=== PATIENT | male | born 1970 | race African-American/Black ===

== ENCOUNTER 2020-07-26 15:29 | Emergency (ER) | payer OTHER ==
[2020-07-26 15:57] VITALS: TEMP 98.4; BMI 36.5
[2020-07-26 17:19] LABS: BASO % 0.7 % (0-2.0); EOS % 2.8 % (0-4.5); HEMATOCRIT 39.2 % (35.4-49); HEMOGLOBIN 13.2 GM/dL (11.7-16.9); LYMPH % 31.1 % (8-40); MCH 30.5 pg (25.7-33.7); MCHC 33.6 g/dl (32.0-35.9); MEAN CELL VOLUME 90.8 fl (80-96); MEAN PLT VOLUME 7.6 fl (7.5-11.1); MONO % 7.8 % (3.8-10.2); NEUT % 57.6 % (42.8-82.8); PLATELET COUNT 321 K/MM3 (134-434); RBC 4.32 M/mm3 (4.00-5.60); RDW 14.7 % (11.9-15.9)
[2020-07-26 17:43] LABS: CHLORIDE 106 mmol/L (98-107); SODIUM 141 mmol/L (136-145)
[2020-07-26 17:44] LABS: CALCIUM 9.3 mg/dL (8.5-10.1)
[2020-07-26 17:45] LABS: ALBUMIN 4.4 g/dl (3.4-5.0); ANION GAP 5 MMOL/L (8-16); BLOOD UREA NITROGEN 9.8 mg/dL (7-18); CO2 30 mmol/L (21-32); GLUCOSE,RANDOM 97 mg/dL (74-106)
[2020-07-26 17:48] LABS: CREATININE 1.1 mg/dL (0.55-1.3); SGOT/AST 49 U/L (15-37); SGPT/ALT 90 U/L (13-61)
[2020-07-26 17:50] LABS: BILIRUBIN,TOTAL 0.3 mg/dL (0.2-1); TOT PROT 7.7 g/dl (6.4-8.2)
[2020-07-26 17:51] LABS: ALK PHOS 95 U/L (45-117)
[2020-07-26] MEDS ORDERED: HIV POST EXPOSURE PROPHYLAXIS KIT NR ONE (19:35)
[2020-07-26] MEDS ORDERED: DOXYCYCLINE HYCLATE 100 MG CAPSULE PO ONE ×2 (19:36→21:26)
[2020-07-26 19:42] LABS: PH,URINE 7.5 (5.0-8.0); URINE APPEARANCE CLEAR; URINE BILIRUBIN NEGATIVE (NEGATIVE); URINE COLOR YELLOW; URINE GLUCOSE (UA) NEGATIVE (NEGATIVE); URINE KETONE NEGATIVE (NEGATIVE); URINE LEUK ESTERASE NEGATIVE (NEGATIVE); URINE NITRITE NEGATIVE (NEGATIVE); URINE PROTEIN NEGATIVE (NEGATIVE); URINE UROBILINOGEN 0.2 mg/dL (0.2-1.0)
[2020-07-26 20:31] LABS: METHADONE, UR NEGATIVE ng/ml (CUTOFF=300); OPIATES, URI NEGATIVE ng/ml (CUTOFF=300)
[2020-07-26 20:32] LABS: COCAINE, UR NEGATIVE ng/ml (CUTOFF=300); URINE AMPHETAMINES NEGATIVE ng/ml (CUTOFF=500)
[2020-07-26 20:37] LABS: PHENCYCLIDINE,URINE POSITIVE ng/ml (CUTOFF=25); URINE BARBITURATES NEGATIVE ng/ml (CUTOFF=200); URINE BENZODIAZEPINES NEGATIVE ng/ml (CUTOFF=200)
[2020-07-26] MEDS ORDERED: HIV POST EXPOSURE PROPHYLAXIS KIT PO ONE (21:26)
[2020-07-26] MEDS ORDERED: cefTRIAXone SODIUM 1 GM VIAL ONE (21:27)
[2020-07-26] MEDS ORDERED: LIDOCAINE HCL 1%, 10 MG/ML (20ML VIAL) ONE (21:30)
[2020-07-26 23:30] LABS: HIV INTERPRETATION NEGATIVE (NEGATIVE)
[2020-07-27] MEDS ORDERED: NICOTINE 14 MG/24 HOURS TOPICAL PATCH TD SCH (00:30)
[2020-07-27 06:48] VITALS: BP 134/73; PULSE 82
== END 2020-07-27 06:50 | disposition short-term general hospital (02) ==
LOC: JER 15:29
DX: F19.10 Other psychoactive substance abuse, uncomplicated (principal); R07.9 Chest pain, unspecified
CPT/HCPCS: 36415; 70450-TC; 71045-TC-FY; 80053; 80074; 80307; 81003; 84484; 85025; 86780; 87389; 87491; 87591; 93005; 93010; 99285-25

== ENCOUNTER 2020-07-27 08:08 | Inpatient (IN) | payer OTHER ==
[2020-07-27 09:44] VITALS: BMI 31.3
[2020-07-27] MEDS ORDERED: ACETAMINOPHEN 325 MG TABLET (FP) PO PRN (13:06)
[2020-07-27] MEDS ORDERED: MAGNESIUM HYDROX 2400MG/30ML ORAL SUSPENSION 30 ML CUP PO PRN (13:06)
[2020-07-27] MEDS ORDERED: P-EPHED 60MG/TRIPROLIDI 2.5MG TABLET PO PRN (13:06)
[2020-07-27] MEDS ORDERED: guaiFENesin 200 MG/10 ML 10 ML UNIT-DOSE CUPS PO PRN (13:06)
[2020-07-27] MEDS ORDERED: IBUPROFEN 400 MG TABLET (FP) PO PRN (13:06)
[2020-07-27] MEDS ORDERED: LOPERAMIDE HCL 2 MG CAPSULE PO PRN (13:06)
[2020-07-27] MEDS ORDERED: NICOTINE POLACRILEX 2 MG GUM BC PRN (13:06)
[2020-07-27] MEDS ORDERED: MAGNESIUM CITRATE 300 ML BOTTLE PO PRN (13:06)
[2020-07-27] MEDS ORDERED: DOXYCYCLINE HYCLATE 100 MG CAPSULE PO SCH (13:45)
[2020-07-27] MEDS: NICOTINE 14 MG/24 HOURS TOPICAL PATCH TD SCH (14:53)
[2020-07-27] MEDS: GABAPENTIN 300 MG CAPSULE PO SCH ×2 (14:53→21:19)
[2020-07-27] MEDS: EMTRICITABINE 200MG/TENOFOVIR 300MG PO SCH (14:53)
[2020-07-27] MEDS: hydrOXYzine PAMOATE 25 MG CAPSULE (FP) PO SCH ×3 (15:19→21:20)
[2020-07-27] MEDS: DOXYCYCLINE HYCLATE 100 MG TABLET PO SCH (18:51)
[2020-07-27] MEDS: THIAMINE HCL 100 MG TABLET (FP) PO SCH (21:19)
[2020-07-27] MEDS: RALTEGRAVIR POTASSIUM 400 MG TAB PO SCH (21:20)
[2020-07-27] MEDS: MAG HYDROX/AL HYDROX/SIMETH 30 ML UNIT-DOSE CUP PO PRN (21:21)
[2020-07-27] MEDS ORDERED: MELATONIN 5 MG TABLETS PO SCH (22:00)
[2020-07-28 01:49] LABS: URINE APPEARANCE CLEAR; URINE BILIRUBIN NEGATIVE (NEGATIVE); URINE COLOR YELLOW; URINE GLUCOSE (UA) NEGATIVE (NEGATIVE); URINE KETONE TRACE (NEGATIVE); URINE LEUK ESTERASE NEGATIVE (NEGATIVE); URINE NITRITE NEGATIVE (NEGATIVE); URINE PROTEIN TRACE (NEGATIVE)
[2020-07-28] MEDS: DOXYCYCLINE HYCLATE 100 MG TABLET PO SCH ×2 (06:28→17:32)
[2020-07-28] MEDS: GABAPENTIN 300 MG CAPSULE PO SCH ×3 (06:28→21:20)
[2020-07-28] MEDS: hydrOXYzine PAMOATE 25 MG CAPSULE (FP) PO SCH ×3 (06:28→13:22)
[2020-07-28] MEDS: NICOTINE 14 MG/24 HOURS TOPICAL PATCH TD SCH (10:11)
[2020-07-28] MEDS: EMTRICITABINE 200MG/TENOFOVIR 300MG PO SCH (10:11)
[2020-07-28] MEDS: PRENATAL VITAMINS W/ FOLIC ACID TABLET (FP) PO SCH (10:11)
[2020-07-28] MEDS: RALTEGRAVIR POTASSIUM 400 MG TAB PO SCH ×2 (10:11→21:20)
[2020-07-28 10:35] LABS: HEMATOCRIT 40.1 % (35.4-49); HEMOGLOBIN 13.6 GM/dL (11.7-16.9); MCH 30.6 pg (25.7-33.7); MCHC 33.9 g/dl (32.0-35.9); MEAN CELL VOLUME 90.1 fl (80-96); MEAN PLT VOLUME 7.4 fl (7.5-11.1); PLATELET COUNT 317 K/MM3 (134-434); RBC 4.45 M/mm3 (4.00-5.60); RDW 14.6 % (11.9-15.9); WHITE BLOOD COUNT 6.4 K/mm3 (4.0-10.0)
[2020-07-28 10:37] LABS: BLOOD UREA NITROGEN 14.4 mg/dL (7-18); CALCIUM 9.6 mg/dL (8.5-10.1)
[2020-07-28 10:41] LABS: BILIRUBIN,TOTAL 0.6 mg/dL (0.2-1); TOT PROT 7.3 g/dl (6.4-8.2)
[2020-07-28] MEDS ORDERED: IBUPROFEN 400 MG TABLET (FP) PO PRN (11:51)
[2020-07-28] MEDS: METHOCARBAMOL 500 MG TABLET PO PRN (13:22)
[2020-07-28] MEDS: LIDOCAINE 5% TOPICAL PATCH TP SCH (13:23)
[2020-07-28] MEDS: hydrOXYzine PAMOATE 50 MG CAPSULE (FP) PO PRN (21:20)
[2020-07-28] MEDS: THIAMINE HCL 100 MG TABLET (FP) PO SCH (21:20)
[2020-07-28] MEDS: SUVOREXANT 10 MG TABLET PO PRN (21:21)
[2020-07-28] MEDS: LIDOCAINE PATCH REMOVAL MC SCH (21:22)
[2020-07-29] MEDS: METHOCARBAMOL 500 MG TABLET PO PRN ×4 (02:24→21:40)
[2020-07-29] MEDS: DOXYCYCLINE HYCLATE 100 MG TABLET PO SCH ×2 (07:03→17:29)
[2020-07-29] MEDS: GABAPENTIN 300 MG CAPSULE PO SCH ×3 (07:03→21:39)
[2020-07-29] MEDS: hydrOXYzine PAMOATE 50 MG CAPSULE (FP) PO PRN ×3 (08:58→17:30)
[2020-07-29] MEDS ORDERED: PT OWN MED DRAWER 7, Y5N ONE (09:01)
[2020-07-29] MEDS: PRENATAL VITAMINS W/ FOLIC ACID TABLET (FP) PO SCH (09:02)
[2020-07-29] MEDS: RALTEGRAVIR POTASSIUM 400 MG TAB PO SCH ×2 (09:02→21:39)
[2020-07-29] MEDS: NICOTINE 14 MG/24 HOURS TOPICAL PATCH TD SCH (09:02)
[2020-07-29] MEDS: LIDOCAINE 5% TOPICAL PATCH TP SCH (09:02)
[2020-07-29] MEDS: EMTRICITABINE 200MG/TENOFOVIR 300MG PO SCH (09:02)
[2020-07-29] MEDS: THIAMINE HCL 100 MG TABLET (FP) PO SCH (21:40)
[2020-07-29] MEDS: SUVOREXANT 10 MG TABLET PO PRN (21:41)
[2020-07-29] MEDS: LIDOCAINE PATCH REMOVAL MC SCH (21:42)
[2020-07-30] MEDS: hydrOXYzine PAMOATE 50 MG CAPSULE (FP) PO PRN ×3 (00:43→15:46)
[2020-07-30] MEDS: DOXYCYCLINE HYCLATE 100 MG TABLET PO SCH ×2 (06:19→18:31)
[2020-07-30] MEDS: GABAPENTIN 300 MG CAPSULE PO SCH ×3 (06:19→21:17)
[2020-07-30] MEDS: METHOCARBAMOL 500 MG TABLET PO PRN (06:51)
[2020-07-30] MEDS: RALTEGRAVIR POTASSIUM 400 MG TAB PO SCH ×2 (10:04→21:17)
[2020-07-30] MEDS: LIDOCAINE 5% TOPICAL PATCH TP SCH (10:04)
[2020-07-30] MEDS: PRENATAL VITAMINS W/ FOLIC ACID TABLET (FP) PO SCH (10:04)
[2020-07-30] MEDS: NICOTINE 14 MG/24 HOURS TOPICAL PATCH TD SCH (10:05)
[2020-07-30] MEDS: EMTRICITABINE 200MG/TENOFOVIR 300MG PO SCH (10:05)
[2020-07-30] MEDS: NAPROXEN 500 MG TABLET PO SCH ×2 (12:53→21:17)
[2020-07-30] MEDS: METHOCARBAMOL 750 MG TAB PO PRN ×2 (15:47→21:17)
[2020-07-30] MEDS: THIAMINE HCL 100 MG TABLET (FP) PO SCH (21:17)
[2020-07-30] MEDS: SUVOREXANT 10 MG TABLET PO PRN (21:18)
[2020-07-30] MEDS: LIDOCAINE PATCH REMOVAL MC SCH (21:19)
[2020-07-30] MEDS: MAG HYDROX/AL HYDROX/SIMETH 30 ML UNIT-DOSE CUP PO PRN (21:55)
[2020-07-31 06:06] LABS: SARS-CoV-2 NAA Not Detected (Not Detected)
[2020-07-31] MEDS: DOXYCYCLINE HYCLATE 100 MG TABLET PO SCH ×2 (06:29→17:56)
[2020-07-31] MEDS: METHOCARBAMOL 750 MG TAB PO PRN ×2 (06:30→09:20)
[2020-07-31] MEDS: GABAPENTIN 300 MG CAPSULE PO SCH ×3 (06:30→21:41)
[2020-07-31] MEDS: LIDOCAINE 5% TOPICAL PATCH TP SCH (09:17)
[2020-07-31] MEDS: RALTEGRAVIR POTASSIUM 400 MG TAB PO SCH ×2 (09:17→21:43)
[2020-07-31] MEDS: NAPROXEN 500 MG TABLET PO SCH ×2 (09:17→21:41)
[2020-07-31] MEDS: PRENATAL VITAMINS W/ FOLIC ACID TABLET (FP) PO SCH (09:17)
[2020-07-31] MEDS: EMTRICITABINE 200MG/TENOFOVIR 300MG PO SCH (09:17)
[2020-07-31] MEDS: NICOTINE 14 MG/24 HOURS TOPICAL PATCH TD SCH (09:18)
[2020-07-31] MEDS: hydrOXYzine PAMOATE 50 MG CAPSULE (FP) PO PRN ×2 (09:20→21:42)
[2020-07-31] MEDS: ARIPiprazole 5 MG TABLET PO SCH (14:50)
[2020-07-31] MEDS: MAG HYDROX/AL HYDROX/SIMETH 30 ML UNIT-DOSE CUP PO PRN (20:03)
[2020-07-31] MEDS: SUVOREXANT 10 MG TABLET PO PRN (21:40)
[2020-07-31] MEDS: PRAZOSIN HCL 1 MG CAPSULE PO SCH (21:41)
[2020-07-31] MEDS: LIDOCAINE PATCH REMOVAL MC SCH (21:43)
[2020-07-31] MEDS ORDERED: SUVOREXANT 10 MG TABLET PO PRN (22:00)
[2020-08-01] MEDS: hydrOXYzine PAMOATE 50 MG CAPSULE (FP) PO PRN ×2 (03:42→10:33)
[2020-08-01] MEDS: METHOCARBAMOL 750 MG TAB PO PRN ×3 (06:22→13:04)
[2020-08-01] MEDS: GABAPENTIN 300 MG CAPSULE PO SCH ×3 (06:22→21:12)
[2020-08-01] MEDS: DOXYCYCLINE HYCLATE 100 MG TABLET PO SCH ×2 (07:01→18:25)
[2020-08-01] MEDS: EMTRICITABINE 200MG/TENOFOVIR 300MG PO SCH (10:33)
[2020-08-01] MEDS: ARIPiprazole 5 MG TABLET PO SCH (10:33)
[2020-08-01] MEDS: NICOTINE 14 MG/24 HOURS TOPICAL PATCH TD SCH (10:33)
[2020-08-01] MEDS: PRENATAL VITAMINS W/ FOLIC ACID TABLET (FP) PO SCH (10:33)
[2020-08-01] MEDS: LIDOCAINE 5% TOPICAL PATCH TP SCH (10:33)
[2020-08-01] MEDS: NAPROXEN 500 MG TABLET PO SCH ×2 (10:33→21:12)
[2020-08-01] MEDS: RALTEGRAVIR POTASSIUM 400 MG TAB PO SCH ×2 (10:33→21:12)
[2020-08-01] MEDS: MAG HYDROX/AL HYDROX/SIMETH 30 ML UNIT-DOSE CUP PO PRN ×2 (12:06→21:14)
[2020-08-01] MEDS: PANTOPRAZOLE 40 MG TABLET PO SCH (12:55)
[2020-08-01] MEDS: PRAZOSIN HCL 1 MG CAPSULE PO SCH (21:13)
[2020-08-01] MEDS: LIDOCAINE PATCH REMOVAL MC SCH (21:15)
[2020-08-02] MEDS: hydrOXYzine PAMOATE 50 MG CAPSULE (FP) PO PRN ×2 (04:38→10:04)
[2020-08-02] MEDS: METHOCARBAMOL 750 MG TAB PO PRN ×4 (04:38→21:23)
[2020-08-02] MEDS: GABAPENTIN 300 MG CAPSULE PO SCH ×3 (06:15→21:23)
[2020-08-02] MEDS: DOXYCYCLINE HYCLATE 100 MG TABLET PO SCH ×2 (06:15→18:05)
[2020-08-02] MEDS: PRENATAL VITAMINS W/ FOLIC ACID TABLET (FP) PO SCH (10:03)
[2020-08-02] MEDS: LIDOCAINE 5% TOPICAL PATCH TP SCH (10:04)
[2020-08-02] MEDS: PANTOPRAZOLE 40 MG TABLET PO SCH (10:04)
[2020-08-02] MEDS: NICOTINE 14 MG/24 HOURS TOPICAL PATCH TD SCH (10:04)
[2020-08-02] MEDS: ARIPiprazole 5 MG TABLET PO SCH (10:04)
[2020-08-02] MEDS: NAPROXEN 500 MG TABLET PO SCH ×2 (10:04→21:23)
[2020-08-02] MEDS: RALTEGRAVIR POTASSIUM 400 MG TAB PO SCH ×2 (10:05→21:23)
[2020-08-02] MEDS: EMTRICITABINE 200MG/TENOFOVIR 300MG PO SCH (10:06)
[2020-08-02] MEDS: LIDOCAINE PATCH REMOVAL MC SCH (21:23)
[2020-08-02] MEDS: PRAZOSIN HCL 1 MG CAPSULE PO SCH (21:24)
[2020-08-02] MEDS ORDERED: traZODone HCL 50 MG TABLET (FP) PO SCH (22:00)
[2020-08-03] MEDS: hydrOXYzine PAMOATE 50 MG CAPSULE (FP) PO PRN ×2 (01:38→10:12)
[2020-08-03] MEDS: GABAPENTIN 300 MG CAPSULE PO SCH (06:41)
[2020-08-03] MEDS: DOXYCYCLINE HYCLATE 100 MG TABLET PO SCH (06:41)
[2020-08-03 07:00] VITALS: PULSE 88
[2020-08-03 07:01] VITALS: BP 113/72; TEMP 97.9
[2020-08-03] MEDS: METHOCARBAMOL 750 MG TAB PO PRN (10:12)
[2020-08-03] MEDS: PRENATAL VITAMINS W/ FOLIC ACID TABLET (FP) PO SCH (10:12)
[2020-08-03] MEDS: ARIPiprazole 5 MG TABLET PO SCH (10:13)
[2020-08-03] MEDS: EMTRICITABINE 200MG/TENOFOVIR 300MG PO SCH (10:13)
[2020-08-03] MEDS: NAPROXEN 500 MG TABLET PO SCH (10:13)
[2020-08-03] MEDS: NICOTINE 14 MG/24 HOURS TOPICAL PATCH TD SCH (10:13)
[2020-08-03] MEDS: RALTEGRAVIR POTASSIUM 400 MG TAB PO SCH (10:13)
[2020-08-03] MEDS: LIDOCAINE 5% TOPICAL PATCH TP SCH (10:13)
[2020-08-03] MEDS: PANTOPRAZOLE 40 MG TABLET PO SCH (10:13)
== END 2020-08-03 11:40 | disposition home or self-care (01) | DRG 895 ==
LOC: YASAS 08:08 → Y3W 13:04
PROVIDERS: ADMIT Allergy & Immunology; ATTEND Allergy & Immunology
PROC: HZ42ZZZ Group Counseling for Substance Abuse Treatment, Cognitive-Behavioral (ICD-10-PCS; principal; 2020-07-27)
DX: F16.20 Hallucinogen dependence, uncomplicated (principal); F19.282 Other psychoactive substance dependence with psychoactive substance-induced sleep disorder; F19.280 Other psychoactive substance dependence with psychoactive substance-induced anxiety disorder; F12.20 Cannabis dependence, uncomplicated; F17.210 Nicotine dependence, cigarettes, uncomplicated; F32.9 Major depressive disorder, single episode, unspecified; F43.10 Post-traumatic stress disorder, unspecified; F19.24 Other psychoactive substance dependence with psychoactive substance-induced mood disorder; G56.03 Carpal tunnel syndrome, bilateral upper limbs; G47.00 Insomnia, unspecified; M25.512 Pain in left shoulder; M54.5 Low back pain; M19.09 Primary osteoarthritis, other specified site; K21.9 Gastro-esophageal reflux disease without esophagitis; E78.5 Hyperlipidemia, unspecified; Z62.810 Personal history of physical and sexual abuse in childhood; Z91.410 Personal history of adult physical and sexual abuse; Z87.820 Personal history of traumatic brain injury; Z59.0 Homelessness; Z98.1 Arthrodesis status; Z72.89 Other problems related to lifestyle
CPT/HCPCS: 36415; 80053; 81003; 85027; C9803; U0003; U0005